=== PATIENT | male | born 1975 | race Caucasian/White ===

== ENCOUNTER 2021-09-07 11:41 | Emergency (ER) | payer BC ==
[~2021-09-07] VITALS: Ht 180.3 cm; Wt 107.0 kg
[2021-09-07 11:51] VITALS: BP 163/100
--- NOTE | 2021-09-07 12:04 | NUR ---
pt was evaluated by ermd in triage at this time. wound was cleaned with ns 0.9 flush and dressed with non adherent pad and gauze roll.
[2021-09-07] MEDS ORDERED: BACI1PAC6 TP (12:20)
--- NOTE | 2021-09-07 12:57 | NUR ---
DITE REPORT TO [employer] AT 12:56
--- NOTE | 2021-09-07 13:09 | NUR ---
Patient discharged with v/s stable. Written and verbal after care instructions ABOUT DOG BITE given and explained. Patient alert, oriented and verbalized understanding of instructions. Ambulatory with steady gait. All questions addressed prior to discharge. ID band removed. Patient advised to follow up with PMD. Rx of BACITRACIN given. Patient educated on indication of medication including possible reaction and side effects. Opportunity to ask questions provided and answered.
== END 2021-09-07 13:09 | disposition home or self-care (01) ==
LOC: MED 11:41
DX: S81.051A Open bite, right knee, initial encounter (principal); Z79.899 Other long term (current) drug therapy; W54.0XXA Bitten by dog, initial encounter; Y93.89 Activity, other specified; Y92.89 Other specified places as the place of occurrence of the external cause; Y99.8 Other external cause status
CPT/HCPCS: 90471; 90715; 99283